=== PATIENT | male | born 1995 | race Caucasian/White ===

== ENCOUNTER 2018-12-29 08:46 | Emergency (ER) | payer OTHER ==
[~2018-12-29] VITALS: Ht 170.2 cm; Wt 106.4 kg
[2018-12-29 08:53] VITALS: Ht 170.2 cm; Wt 106.4 kg
[2018-12-29] MEDS ORDERED: KETOROLAC 60 MG INJ IM STA (09:11)
[2018-12-29] MEDS ORDERED: IBUP-1542 PO (10:17)
--- NOTE | 2018-12-29 10:28 | ERD ---
ER Documentation Chief Complaint Chief Complaint R foot pain and swelling, denies trauma HPI 23-year-old male patient with a past medical history of hypertension, psoriasis presents to the ED complaining of right foot and ankle pain that started about 3 months ago. States that he was playing soccer and actually twisted his right ankle. Describes as achy and rates it an 8 and then 10. Denies any chest pain, shortness of breath, nausea, vomiting, diarrhea, loss sensation, loss of range of motion, neck stiffness. ROS All systems reviewed and are negative except as per history of present illness. Medications Home Meds Active Scripts Ibuprofen* (Motrin*) 600 Mg Tab, 600 MG PO Q6, #30 TAB Prov:SWATI LANGLEY PA-C 12/29/18 Allergies Allergies: Coded Allergies: No Known Allergy (Unverified , 12/29/18) PMhx/Soc Medical and Surgical Hx: pt denies Surgical Hx Anesthesia Reaction: No Hx Neurological Disorder: No Hx Respiratory Disorders: No Hx Cardiac Disorders: No Hx Psychiatric Problems: No Hx Miscellaneous Medical Probl: Yes (psoriasis ) Hx Alcohol Use: No Hx Substance Use: No Hx Tobacco Use: No Smoking Status: Never smoker FmHx Family History: No diabetes, No coronary disease Physical Exam Vitals Vital Signs Date Temp Pulse Resp B/P (MAP) Pulse Ox O2 O2 Flow FiO2 Time Delivery Rate 12/29/18 86 18 155/100 99 Room Air 10:37 (118) 12/29/18 98.7 100 18 166/116 100 08:53 (133) Physical Exam Const: Agn-exm-[id number], well-nourished. In no acute distress. Head: Atraumatic, normocephalic Eyes: Normal Conjunctiva without injection ENT: Normal external ear, nose and mouth. Neck: Full range of motion. No meningismus. Resp: Clear to auscultation bilaterally. No wheezing, rhonchi, rales, or crackles. No accessory muscle use. No retractions. Cardio: Regular rate and rhythm, no murmurs Skin: No petechiae or rashes Back: No midline tenderness. No CVA tenderness. Ext: No cyanosis, or edema. Cap refill less than 2 seconds. Distal pulses intact bilaterally. Tender palpation of the right ankle, lateral malleolus and medial malleolus. No erythema, edema, fluctuance or induration, warmth to touch. Full range of motion with dorsiflexion, plantar flexion. Neur: Awake and alert. Normal gait and coordination. Muscle strength 5/5. Sensation intact bilaterally. Psych: Normal Mood and Affect Results 24 hrs Current Medications Medications Dose Sig/Jules Start Time Status Last (Trade) Ordered Route PRN Stop Time Admin Dose Reason Admin Ketorolac 60 mg ONCE STAT 12/29/18 DC 12/29/18 Tromethamine IM 09:11 09:28 (Toradol) 12/29/18 09:14 Procedures/MDM 23-year-old male patient with no significant past medical history presents with past medical history of hypertension, psoriasis presents to the ED complaining of right foot pain, right ankle pain. Patient has a blood pressure 166/116. Blood Pressure Assessment: Patient's blood pressure was elevated (>120/80) but appears stable without evidence of hypertension emergency or urgency. The patient was counseled about the risks of hypertension and urged to pursue outpatient monitoring and therapy within a week with their primary care physician. Elevated high blood pressure likely secondary to pain. Patient is taking amlodipine, losartan. Patient was treated here in the ED with Toradol 60 mg IM with improvement of his pain. Right ankle and foot x-ray was ordered to further evaluate patient. IMPRESSION: Subtle mild deformity and potential calcified periosteal reaction over the medial malleolus. Etiology is uncertain. findings could be the sequelae of old trauma or inflammation. Underlying chronic indolent inflammation or osteomyelit is is not excluded. Correlation with clinical presentation is recommended. If further characterization is needed MRI could be helpful. Mild potential soft tissue swelling surrounding the ankle. Etiology is uncertain. Etiology is uncertain. If there is a history of trauma, ligamentous and tendinous injury is not excluded. If characterization of the ligaments and tendons is needed MRI is recommended. Small Achilles insertion heel spur. If further characterization is needed CT or MRI could be helpful. If there is high clinical suspicion for acute bony traumatic injury, further evaluation with CT should be considered. IMPRESSION: 1. Cortical irregularity along the lateral margin of the head of the fifth metatarsal, suspicious for small erosion. Clinical correlation is required. Consider MRI for further evaluation. 2. Diffuse bony demineralization. 3. Diffuse soft tissue edema. Patient is placed in an margarito wrap. Crutches were offered to patient to help with ambulation of the patient denied wanting any crutches. Patient was recommended to obtain an MRI with orthopedic physician follow-up. Splint Assessment: Neurovascularly intact pre and post splint placement with good fit. Patient's extremity symptoms have stabilized while they have been evaluated in the department and are appropriate for outpatient follow up. No evidence of fractures, dislocations, compartment syndrome, neurologic injury, vascular injury, open joint, open fracture, tendon laceration, septic arthritis, osteomyelitis, DVT, foreign body, or other emergent conditions. Diagnosis: Right ankle pain, Right foot pain Discharge medications: Ibuprofen Follow up with primary care physician in 1-2 days for follow up and work up of his hypertension and for referral to see an orthopedic physician for further evaluation and treatment. Instructed patient to return to the ED sooner for any worsening symptoms. Patient's questions were answered. Patient is hemodynamically stable. Patient understood and agreed with discharge plan. Patient discharged stable. Disclaimer: Inadvertent spelling and grammatical errors are likely due to EHR/dictation software use and do not reflect on the overall quality of patient care. Also, please note that the electronic time recorded on this note does not necessarily reflect the actual time of the patient encounter. Departure Diagnosis: Primary Impression: Right ankle pain Chronicity: acute Qualified Codes: M25.571 - Pain in right ankle and joints of right foot Additional Impression: Right foot pain Condition: Stable Patient Instructions: What Are Ankle Sprains?, High Blood Pressure (Hypertens ion), Sprain Foot Referrals: [facility] YOU HAVE RECEIVED A MEDICAL SCREENING EXAM AND THE RESULTS INDICATE THAT YOU DO NOT HAVE A CONDITION THAT REQUIRES URGENT TREATMENT IN THE EMERGENCY DEPARTMENT. FURTHER EVALUATION AND TREATMENT OF YOUR CONDITION CAN WAIT UNTIL YOU ARE SEEN IN YOUR DOCTORS OFFICE WITHIN THE NEXT 1-2 DAYS. IT IS YOUR RESPONSIBILITY TO MAKE AN APPOINTMENT FOR FOLOW-UP CARE. IF YOU HAVE A PRIMARY DOCTOR --you should call your primary doctor and schedule an appointment IF YOU DO NOT HAVE A PRIMARY DOCTOR YOU CAN CALL OUR PHYSICIAN REFERRAL HOTLINE AT IF YOU CAN NOT AFFORD TO SEE A PHYSICIAN YOU CAN CHOSE FROM THE FOLLOWING [facility] [address] [facility] [address] [facility] [address] [facility] [address] [facility] [address] [facility]. [facility]. [address] [facility]. [facility] YOU HAVE RECEIVED A MEDICAL SCREENING EXAM AND THE RESULTS INDICATE THAT YOU DO NOT HAVE A CONDITION THAT REQUIRES URGENT TREATMENT IN THE EMERGENCY DEPARTMENT. FURTHER EVALUATION AND TREATMENT OF YOUR CONDITION CAN WAIT UNTIL YOU ARE SEEN IN YOUR DOCTORS OFFICE WITHIN THE NEXT 1-2 DAYS. IT IS YOUR RESPONSIBILITY TO MAKE AN APPOINTMENT FOR FOLOW-UP CARE. IF YOU HAVE A PRIMARY DOCTOR --you should call your primary doctor and schedule and appointment IF YOU DO NOT HAVE A PRIMARY DOCTOR YOU CAN CALL OUR PHYSICIAN REFERRAL HOTLINE AT . IF YOU CAN NOT AFFORD TO SEE A PHYSICIAN YOU CAN CHOSE FROM THE FOLLOWING [facility] INSTITUTIONS: [facility] [address] [place] [address] [facility] [address] [place], [place] [id number] [place] [address] [address] [place] [address] [facility] Urgent Care 7 a.m.- 11 p.m. Every Day of the Week NO APPOINTMENT OR AUTHORIZATION NEEDED SO [facility] Hours: Mon-Fri 9:00 AM - 5:00 PM Additional Instructions: Call your primary care doctor TOMORROW for an appointment during the next 2-3 days for a referral to an orthopedic physician.See the doctor sooner or return here if your condition worsens before your appointment time. SWATI LANGLEY PA-C Dec 29, 2018 10:28
[2018-12-29 10:37] VITALS: BP 155/100; PULSE 86; RESP 18
== END 2018-12-29 10:36 | disposition home or self-care (01) ==
LOC: FTE 08:46
DX: M25.571 Pain in right ankle and joints of right foot (principal); I10 Essential (primary) hypertension
CPT/HCPCS: 73610; 73630; J1885; 96372